=== PATIENT | female | born 1980 | race African-American/Black ===

== ENCOUNTER 2017-11-07 19:13 | Emergency (ER) | payer SELFPAY ==
[~2017-11-07] VITALS: Ht 165.1 cm; Wt 72.0 kg
[2017-11-07 21:57] VITALS: BP 121/85
== END 2017-11-07 21:58 | disposition home or self-care (01) ==
LOC: ER 19:13
DX: S61.211A Laceration without foreign body of left index finger without damage to nail, initial encounter (principal); W23.0XXA Caught, crushed, jammed, or pinched between moving objects, initial encounter; Y93.89 Activity, other specified; Y92.89 Other specified places as the place of occurrence of the external cause; F12.90 Cannabis use, unspecified, uncomplicated; F17.210 Nicotine dependence, cigarettes, uncomplicated
CPT/HCPCS: 12001; 99283

== ENCOUNTER 2017-11-11 06:10 | Emergency (ER) | payer SELFPAY ==
[~2017-11-11] VITALS: Ht 165.1 cm; Wt 79.5 kg
[2017-11-11 06:20] VITALS: BP 131/74
== END 2017-11-11 09:23 | disposition home or self-care (01) ==
LOC: ER 06:10
DX: Z48.00 Encounter for change or removal of nonsurgical wound dressing (principal); L03.012 Cellulitis of left finger; F17.200 Nicotine dependence, unspecified, uncomplicated
CPT/HCPCS: 99283